=== PATIENT | female | born 1985 | race Caucasian/White ===

== ENCOUNTER 2022-09-08 14:54 | Inpatient (IN) | payer OTHER ==
[2022-09-08] MEDS ORDERED: Acetaminophen 500 MG TAB PO PRN (15:58)
[2022-09-08] MEDS ORDERED: Ondansetron PF 4 MG/2 ML Vial IVP PRN ×3 (15:58→21:19)
[2022-09-08] MEDS ORDERED: Zolpidem Tartrate 5 MG TAB PO PRN ×2 (15:58→21:19)
[2022-09-08] MEDS ORDERED: hydrALAZINE 20 MG/ML VIAL SLOW IVP PRN ×2 (15:58→21:19)
[2022-09-08] MEDS ORDERED: Ibuprofen 800 MG TAB PO PRN (15:58)
[2022-09-08] MEDS ORDERED: Misoprostol 200 MCG TAB PR PRN (15:58)
[2022-09-08] MEDS ORDERED: Promethazine HCl 25 MG/ML VIAL IM PRN ×2 (15:58→16:13)
[2022-09-08] MEDS ORDERED: Lidocaine 1% (PF) 30 ML VIAL SC PRN ×2 (15:58→18:04)
[2022-09-08] MEDS ORDERED: HYDROcodone/Acetaminophen 5/325 mg Tablet PO PRN ×4 (15:58→21:19)
[2022-09-08] MEDS ORDERED: Diphenoxylate HCl/Atropine Tablet PO PRN ×2 (15:58)
[2022-09-08] MEDS ORDERED: Docusate 100 MG CAP PO PRN (15:58)
[2022-09-08] MEDS ORDERED: Carboprost 250 MCG/ML AMP IM PRN (15:58)
[2022-09-08] MEDS ORDERED: Butorphanol Tartrate 1 MG/ML VIAL SLOW IVP PRN (15:58)
[2022-09-08] MEDS: Lactated Ringer's 1,000 ML IV SCH ×2 (16:00→17:07)
[2022-09-08] MEDS ORDERED: NS w/ Oxytocin 30 units 500 ML IV SCH ×3 (16:00→21:30)
[2022-09-08 16:13] VITALS: BMI 29.6
[2022-09-08] MEDS ORDERED: diphenhydrAMINE 50 MG/ML VIAL IVP PRN (16:13)
[2022-09-08] MEDS ORDERED: Moisturizing Cream (Eucerin) 113 GM JAR TOP PRN (16:13)
[2022-09-08] MEDS ORDERED: Lactated Ringer's 500 ML IV PRN (16:13)
[2022-09-08] MEDS ORDERED: Acetaminophen 325 MG TAB PO PRN ×2 (16:13→21:21)
[2022-09-08] MEDS ORDERED: Naloxone HCl 0.4 mg/ml Vial IVP PRN ×2 (16:13)
[2022-09-08] MEDS ORDERED: ePHEDrine Sulfate 50 MG/10 ML VIAL SLOW IVP PRN (16:13)
[2022-09-08] MEDS ORDERED: Fentanyl 2 mcg/Bupivacaine 0.1% Cassette 100 ML EPIDURAL SCH (16:15)
[2022-09-08] MEDS ORDERED: Communication Order-Pharmacy FS SCH (16:15)
[2022-09-08] MEDS ORDERED: Fentanyl 2 mcg/Bup 0.1% Cadd 100 ML ONE (16:22)
[2022-09-08 16:58] LABS: Hemoglobin 12.8 g/dL (12.0-15.5); Mean Corpuscular HGB CONC 33.7 g/dL (32.0-36.0); Mean Corpuscular Hemoglobin 27.8 pg (27.0-33.0); Mean Corpuscular Volume 82.6 fl (81.6-98.3); Mean Platelet Volume 11.5 fl (7.4-10.4); Platelet Count 209 10x3/uL (150-450); RBC Distribution Width 13.3 % (11.5-14.5); White Blood Cell (WBC) Count 10.2 10x3/uL (3.5-10.5)
[2022-09-08 17:08] LABS: Syphilis Antibody Nonreactive (Nonreactive); Syphilis Antibody Index 0.07 S/CO (<1.00 Non-Reactive)
[2022-09-08 17:11] LABS: HBSAg Index 0.13 S/CO (0-0.99); HIV (1/2) Antibody/Antigen Non-Reactive (NonReactive); HIV 1/2 INDEX 0.11 S/CO (<1.00); Hep B Surf Ag - L&D Non-Reactive S/CO (NonReactive)
[2022-09-08] MEDS ORDERED: Misoprostol 200 MCG TAB VAG PRN (21:19)
[2022-09-08] MEDS ORDERED: Benzocaine-Menthol 82.5 ML CAN TOP PRN (21:19)
[2022-09-08] MEDS ORDERED: Boostrix 0.5 ML (Tdap) VIAL (>/=7 yrs of age) IM ONE (21:19)
[2022-09-08] MEDS ORDERED: Milk Of Magnesia 30 ML UDCUP PO PRN (21:19)
[2022-09-08] MEDS ORDERED: Lanolin Ointment 7 GM TUBE TOP PRN (21:19)
[2022-09-08] MEDS ORDERED: Preparation H Ointment 28 GM TUBE PR PRN (21:19)
[2022-09-08] MEDS ORDERED: Bisacodyl 10 MG SUPP PR PRN (21:19)
[2022-09-08] MEDS ORDERED: diphenhydrAMINE 25 MG CAP PO PRN (21:19)
[2022-09-08] MEDS ORDERED: Witch Hazel-Glycerin 1 EACH JAR TOP PRN (21:21)
[2022-09-09 04:22] LABS: Hemoglobin 12.1 g/dL (12.0-15.5); Mean Corpuscular Hemoglobin 27.7 pg (27.0-33.0); Mean Platelet Volume 11.4 fl (7.4-10.4); Platelet Count 176 10x3/uL (150-450); RBC Distribution Width 13.2 % (11.5-14.5); Red Blood Cell (RBC) Count 4.37 10x6/uL (3.90-5.03); White Blood Cell (WBC) Count 13.9 10x3/uL (3.5-10.5)
[2022-09-09] MEDS: Ibuprofen 800 MG TAB PO SCH ×4 (05:15→21:11)
[2022-09-09] MEDS: Ferrous Sulfate 325 MG TAB PO SCH ×2 (09:32→18:02)
[2022-09-09] MEDS: Prenatal Vitamin 1 TAB PO SCH (09:43)
[2022-09-09] MEDS: Docusate 100 MG CAP PO SCH ×2 (09:43→21:11)
[2022-09-09 16:09] VITALS: TEMP 98.3
[2022-09-10] MEDS: Ibuprofen 800 MG TAB PO SCH (06:07)
[2022-09-10] MEDS: Ferrous Sulfate 325 MG TAB PO SCH (07:32)
[2022-09-10] MEDS: Docusate 100 MG CAP PO SCH (08:04)
[2022-09-10] MEDS: Prenatal Vitamin 1 TAB PO SCH (08:04)
[2022-09-10 09:25] VITALS: BP 117/72
== END 2022-09-10 13:08 | disposition home or self-care (01) | DRG 807 ==
LOC: CSHLD/OP 14:54 → CSHLD 15:15 → CSHPP 09-09 00:01
PROVIDERS: ADMIT Obstetrics & Gynecology; ATTEND Obstetrics & Gynecology
PROC: 10E0XZZ Delivery of Products of Conception, External Approach (ICD-10-PCS; principal; 2022-09-08)
DX: O42.02 Full-term premature rupture of membranes, onset of labor within 24 hours of rupture (principal); Z37.0 Single live birth; Z3A.37 37 weeks gestation of pregnancy; Z86.16 Personal history of COVID-19; Z79.899 Other long term (current) drug therapy; Z90.89 Acquired absence of other organs; Z98.890 Other specified postprocedural states
CPT/HCPCS: 36415; 51702; 85027; 86780; 86850; 86900; 86901; 87340; 87389; 99285; J2590; J7120